=== PATIENT | female | born 1965 | race Caucasian/White ===

== ENCOUNTER 2016-10-26 15:29 | Emergency (ER) | payer BC ==
[~2016-10-26] VITALS: Ht 167.6 cm; Wt 62.7 kg
[~2016-10-26 15:29] MED LIST: COUMADIN2 MG PO; Coumadin,Jantoven PO; FENOGLIDE40 MG PO; GLIPIZIDE5 MG PO; GLUCOPHAGE500 MG PO; SIMVASTATIN40 MG PO; ZETIA10 MG PO
[2016-10-26] MEDS ORDERED: MOTRIN600 MG PO (20:05)
[2016-10-26] MEDS ORDERED: ZOFRAN4 MG PO (20:05)
[2016-10-26] MEDS ORDERED: NORCO 5/3251 TABLET PO (20:05)
[2016-10-26 21:17] VITALS: BP 112/70
== END 2016-10-26 21:18 | disposition home or self-care (01) ==
LOC: EME 15:29
DX: S39.012A Strain of muscle, fascia and tendon of lower back, initial encounter (principal); W19.XXXA Unspecified fall, initial encounter; M21.379 Foot drop, unspecified foot; G71.11 Myotonic muscular dystrophy; Z79.01 Long term (current) use of anticoagulants; E78.5 Hyperlipidemia, unspecified; E11.9 Type 2 diabetes mellitus without complications; Z79.84 Long term (current) use of oral hypoglycemic drugs
CPT/HCPCS: 72100; 72220; 99281; 99284; J1885